=== PATIENT | male | born 1980 | race Two or more races ===

== ENCOUNTER 2021-12-06 10:35 | Emergency (ER) | payer SELFPAY ==
[~2021-12-06] VITALS: Ht 175.3 cm; Wt 89.0 kg
[2021-12-06 10:56] VITALS: BP 134/95
== END 2021-12-06 20:26 | disposition left against medical advice (07) ==
LOC: ER 10:35
DX: Z53.21 Procedure and treatment not carried out due to patient leaving prior to being seen by health care provider (principal)